=== PATIENT | female | born 1960 | race Caucasian/White ===

== ENCOUNTER → 2016-05-29 | Outpatient (CLI) | payer MEDICAID | LOC: BRMIMAGING 15:10 | PROVIDERS: ATTEND Naturopath | DX: M79.661 Pain in right lower leg (principal); M25.861 Other specified joint disorders, right knee | CPT/HCPCS: 93971-PO ==

== ENCOUNTER → 2016-06-26 | Outpatient (CLI) | payer MEDICAID | LOC: FIMAGING 13:47 | PROVIDERS: ATTEND Surgery | DX: I72.4 Aneurysm of artery of lower extremity (principal); M22.41 Chondromalacia patellae, right knee; R19.09 Other intra-abdominal and pelvic swelling, mass and lump | CPT/HCPCS: C8912 ==

== ENCOUNTER → 2017-08-12 | Outpatient (CLI) | payer MEDICAID | LOC: CIMAGING 16:47 | DX: R93.8 Abnormal findings on diagnostic imaging of other specified body structures (principal) | CPT/HCPCS: 76856-PO ==